=== PATIENT | male | born 1970 | race Caucasian/White ===

== ENCOUNTER 2024-05-19 13:39 | Outpatient (CLI) | payer OTHER | END 2024-05-19 13:40 | disposition home or self-care (01) | LOC: MADLAB 13:39 | PROVIDERS: ATTEND Orthopaedic Surgery | DX: M54.50 Low back pain, unspecified (principal); M47.816 Spondylosis without myelopathy or radiculopathy, lumbar region | CPT/HCPCS: 72100 ==